=== PATIENT | male | born 1985 | race Caucasian/White ===

== ENCOUNTER 2017-09-06 09:15 | Inpatient (IN) | payer OTHER ==
[~2017-09-06 09:15] MED LIST: Acetaminophen TAB* 325 MG PO ONE; Buffered Lidocaine 0.9% SYRIN* 5 ML/SYR SYRINGE INTRADERM ONE; DiMENhydriNATE IV* 50 MG/ML VIAL IV PUSH PRN; Famotidine IV* 10 MG/ML 2 ML (20 mg) IV ONE; Gabapentin CAP(*) 300 MG PO ONE; Morphine INJ* 2 MG/ML 1 ML CARPUJECT IV PRN; Nalbuphine* 20 MG/ML 1 ML VIAL IV PRN; Naloxone* 0.4 MG/ML 1 ML VIAL IV PRN; Scopolamine 1.5 mg* PATCH TRANSDERM ONE; fentaNYL* 50 MCG/ML 2 ML VIAL (100 MCG VIAL) IV PRN
[2017-09-06] MEDS ORDERED: Famotidine IV* 10 MG/ML 2 ML (20 mg) ONE (09:28)
[2017-09-06] MEDS ORDERED: Gabapentin CAP(*) 300 MG ONE (09:29)
[2017-09-06] MEDS ORDERED: Scopolamine 1.5 mg* PATCH ONE (09:29)
[2017-09-06] MEDS ORDERED: Buffered Lidocaine 0.9% SYRIN* 5 ML/SYR SYRINGE ONE (09:29)
[2017-09-06] MEDS ORDERED: Acetaminophen TAB* 325 MG ONE (09:29)
[2017-09-06] MEDS ORDERED: fentaNYL* 50 MCG/ML 2 ML VIAL (100 MCG VIAL) ONE (10:39)
[2017-09-06] MEDS ORDERED: Midazolam* 1 MG/ML 10 ML VIAL (10 MG) ONE (10:39)
[2017-09-06] MEDS ORDERED: KETAMINE HCL* 50 MG/ML 10 ML VIAL ONE (10:39)
[2017-09-06] MEDS ORDERED: Morphine PF AMP (0.5MG/ML)* 5 MG/10 ML AMP ONE (11:12)
[2017-09-06] MEDS ORDERED: Naloxone* 2 MG in NS 0.9% 250 ML* 250 ML IV PRN (11:47)
[2017-09-06] MEDS ORDERED: Nalbuphine* 20 MG/ML 1 ML VIAL IV PRN ×2 (11:47)
[2017-09-06] MEDS ORDERED: diPHENhydraMINE IV* 50 MG/ML 1 ml VIAL (BENADRYL) IV PRN (11:47)
[2017-09-06] MEDS ORDERED: oxyCODONE TAB* 5 MG TAB PO PRN (11:47)
[2017-09-06] MEDS ORDERED: Naloxone* 0.4 MG/ML 1 ML VIAL IV PRN (11:47)
[2017-09-06] MEDS ORDERED: Ketorolac INJ* 30 MG/ML 1 ML VIAL IV PRN (11:47)
[2017-09-06] MEDS ORDERED: Bupivacaine 0.5% SDV PF* 10-30ML VIAL ONE (13:11)
[2017-09-06] MEDS ORDERED: Dexamethasone IV* 4 MG/ML 1 ML (4 MG) ONE (13:11)
[2017-09-06] MEDS ORDERED: Ondansetron INJ* 2 MG/ML VIAL ONE (13:11)
[2017-09-06] MEDS ORDERED: PROCHLORPERAZINE INJ 5 MG/ML 2 ML VIAL ONE (13:11)
[2017-09-06] MEDS ORDERED: Lidocaine 2% PF * 5 ML VIAL ONE (13:11)
[2017-09-06] MEDS ORDERED: Propofol* 500 MG/50 ML BTL ONE (13:11)
[2017-09-06] MEDS ORDERED: Lidocaine 2% PF* 10 ML AMP ONE (13:11)
[2017-09-06] MEDS ORDERED: Phenylephrine INJ* 10 MG/ML 1 ML VIAL (10 MG) ONE (13:11)
[2017-09-06] MEDS ORDERED: Ketorolac INJ* 30 MG/ML 1 ML VIAL ONE (13:11)
[2017-09-06] MEDS ORDERED: Magnesium Hydroxide LIQ* 30 ML UDC PO PRN (13:28)
[2017-09-06] MEDS ORDERED: Polyethylene Glycol 3350* 17 GM PACKET PO PRN (13:34)
[2017-09-06] MEDS ORDERED: Cyclobenzaprine TAB* 10 MG PO PRN (13:34)
[2017-09-06] MEDS ORDERED: Bisacodyl SUPP* 10 MG SUPP PR PRN (13:34)
[2017-09-06] MEDS ORDERED: ceFAZolin 1 GM in Dextrose (*) 1 GM/50 ML BAG IVPB SCH (14:00)
--- NOTE | 2017-09-06 14:16 | RAD ---
INDICATION: Status post total right hip replacement surgery. COMPARISON: Comparison is made with a prior x-ray study of the right hip from August 04, 2017. TECHNIQUE: An AP view of the pelvis was obtained. FINDINGS: The patient is status post total right hip replacement surgery. The bones and prostheses are in normal alignment. There are several surgical christiano present laterally and a small amount of air within the soft tissues consistent with the patient's recent surgery. IMPRESSION: STATUS POST TOTAL RIGHT HIP REPLACEMENT SURGERY.
[2017-09-06] MEDS: PROCHLORPERAZINE INJ 5 MG/ML 2 ML VIAL IV SCH ×2 (15:38→17:54)
[2017-09-06] MEDS: Ondansetron INJ* 2 MG/ML VIAL IV SCH ×2 (15:38→17:53)
[2017-09-06] MEDS: Acetaminophen TAB* 325 MG PO SCH ×3 (15:38→21:14)
[2017-09-06] MEDS: D5W 1/2 NS 1000 ML BAG* 1,000 ML IV SCH (15:57)
[2017-09-06] MEDS ORDERED: Nicotine GUM* 2 MG ONE (16:30)
[2017-09-06] MEDS ORDERED: Nicotine PATCH 21 MG/24 HR* PATCH ONE (16:30)
[2017-09-06] MEDS: Nicotine PATCH 21 MG/24 HR* PATCH TRANSDERM SCH (16:48)
[2017-09-06] MEDS: Nicotine GUM* 2 MG PO PRN ×2 (16:49→21:30)
[2017-09-06] MEDS ORDERED: Warfarin TAB(*) 10 MG PO ONE (17:00)
[2017-09-06] MEDS: ceFAZolin 1 GM in Dextrose (*) 1 GM/50 ML BAG IVPB SCH (19:24)
[2017-09-06] MEDS ORDERED: Nicotine Patch Removal NOTE PATCH OFF SCH (21:00)
[2017-09-06] MEDS: Docusate CAP* 100 MG PO SCH (21:13)
[2017-09-06] MEDS: Magnesium Hydroxide LIQ* 30 ML UDC PO SCH (21:14)
[2017-09-07] MEDS: Acetaminophen TAB* 325 MG PO SCH (00:06)
[2017-09-07] MEDS: Ondansetron INJ* 2 MG/ML VIAL IV SCH ×4 (00:08→18:38)
[2017-09-07] MEDS: PROCHLORPERAZINE INJ 5 MG/ML 2 ML VIAL IV SCH ×4 (00:08→18:38)
[2017-09-07] MEDS: D5W 1/2 NS 1000 ML BAG* 1,000 ML IV SCH (00:12)
[2017-09-07] MEDS ORDERED: Ondansetron TAB* 4 MG PO PRN (03:15)
[2017-09-07] MEDS ORDERED: diPHENhydraMINE IV* 50 MG/ML 1 ml VIAL (BENADRYL) IV PRN (03:15)
[2017-09-07] MEDS ORDERED: oxyCODONE TAB* 5 MG TAB PO PRN (03:15)
[2017-09-07] MEDS ORDERED: Acetaminophen TAB* 325 MG PO PRN (03:15)
[2017-09-07] MEDS ORDERED: Morphine INJ* 4 MG/ML 1 ML CARPUJECT IV PRN (03:15)
[2017-09-07] MEDS ORDERED: Ondansetron INJ* 2 MG/ML VIAL IV PRN (03:15)
--- NOTE | 2017-09-07 03:21 | OP ---
DATE OF OPERATION: 09/06/17 - ROOM #347 DATE OF : 81 SURGEON: Gopi Butterfield MD SOLAR ENGINEER: Faraz Encarnacion RPA ANESTHESIA: Spinal and sedation. PRE-OP DIAGNOSIS: Osteoarthritis, right hip, questionable avascular necrosis. POST-OP DIAGNOSIS: Osteoarthritis, right hip, questionable avascular necrosis. OPERATIVE PROCEDURE: Right total hip arthroplasty. INDICATIONS: Mr. Smith is a 32-year-old male, who has over a 10-year history of troubles with his right hip. He presented to the office earlier last month and x-rays showed very specific end-stage arthritic changes. He was crpr-ie-ncer with spurs and starting to have some collapse of the femoral head. I discussed with him that a total hip arthroplasty should work well to decrease his pain and improve his function. Risks of surgery such as infection , scar formation, stiffness, DVT, pulmonary embolism, hardware failure, as well as eventual hardware failure considering his age, leg length discrepancy, and instability were some of the risks discussed. He had been declared medically optimized and wished to proceed. ESTIMATED BLOOD LOSS: 100 cc. COMPLICATIONS: None. HARDWARE: Jorge Luis #15 M/L taper, 52-mm Continuum cup, vitamin E elevated liner 36- mm ceramic, -3.5 mm head. DESCRIPTION OF PROCEDURE: The patient was brought to the OR and spinal anesthesia was introduced. Dixon catheter was placed. He was then rolled into the left lateral decubitus position and an axillary roll was placed. Right hip area was prepped and then draped. Incision was made centered over the greater trochanter extending proximally and distally for about 7 cm. Incision was carried down through skin and subcutaneous tissues. Small bleeders encountered were ligated using electrocautery. Fascia was exposed and sharply incised. Trochanteric bursa was then peeled away from the back side of the greater trochanter giving nice exposure to the short external rotators. Hohmann was placed under the gluteus medius/gluteus minimus and I could palpate piriformis. Electrocautery was then used to release piriformis and the short external rotators. Capsule was also entered this way and a gush of blood-tinged fluid was obtained. T-capsulotomy was eventually performed and head was easily dislocated. Cutting guide was placed and the femoral neck was marked. Femoral head was then resected. Anterior C-retractor was placed over the anterior rim of the acetabulum and an inferior Hohmann retractor was placed and nice exposure of the acetabulum was obtained. Labrum was sharply excised giving nice exposure to the entirety of the acetabulum. It could be seen where he had chronic changes within the acetabulum as well. He was first deepened a little bit with a 44 reamer as I needed to medialize him because he needed a larger stem but the large stems do not come in reduced neck lengths. He was medialized first with a 44 until I was down to the medial wall of the acetabulum then he was progressively expanded. I templated him to a 56, but when I hit 51, I had a nice [id number] fit and had bleeding bone and thought that I did not need to resect additional bone. A 50 trial was placed and this did not fit perfectly well, so a 52 reamer was run just to open the edges a little bit and I thought that would fit nicely. A 52 cup was called for and then impacted into place. Even with my holding him, so that he would have good version, I lost my version as the cup settled in and the cup was shifted a bit. Cup was then rim impacted to try and shift the cup a little bit and perhaps I had gotten some better version on the cup. I still had a rim of bone on the backside and I thought I would be able to cover this nicely using an elevated liner. He was flush anteriorly. Two screws were placed and a nice bite was obtained. Trial liner was placed and attention was turned to the femur. Box osteotome was used to open the femoral canal and the canal finder was easily passed. Beginning with a 4 broach, he was progressively broached until the 13 countersunk a little bit, 15 was then used and I was able to get a nice snug fit with the 15. Calcar planer was run with a -3.5 head, he was trialed and had very good stability. His leg length also appeared to be right on. He could be hyperflexed without any wobble within the hip and with the hip flexed just at 90 degrees and a neutral at 60 degrees, he would start to lever out and then would be out at about 80. In full adduction, he would start to lever out at about 45 degrees and would be out at about 60. In extension, he seemed nice and stable and the trochanter did not hit the edge of the acetabulum. Sweeping position, up and down and back and forth was good. Trial instrumentation was removed and the polyethylene was then impacted into place. A 15-stem was also impacted into place and he was trialed again with a -3.5 head. He had a same very good stability and motion. A -3.5, 36-mm ceramic head was then impacted into place and the hip was relocated. The wound was copiously pulse lavaged. Piriformis along with short external rotators and capsule were repaired to the back side of the greater trochanter. Fascia was repaired was using interrupted #1 Vicryl sutures. Wound was again copiously pulse lavaged. Subcutaneous tissue was reapproximated 2-0 Vicryl, skin was closed using christiano. Sterile dressing was applied. The patient was then rolled on to the hospital bed and was stable on transfer to the recovery room. [id number]/[facility] #: [id number] TATIANA
[2017-09-07] MEDS: ceFAZolin 1 GM in Dextrose (*) 1 GM/50 ML BAG IVPB SCH ×2 (04:25→11:31)
[2017-09-07] MEDS: oxyCODONE/Acetamin 5/325 MG* TAB PO PRN ×3 (05:12→13:28)
[2017-09-07 05:50] LABS: Hematocrit 32 % (42-52); Hemoglobin 10.3 g/dl (14.0-18.0); Mean Platelet Volume 8 um3 (7.4-10.4); Platelet Count 240 10^3/ul (150-450)
[2017-09-07 05:56] LABS: INR 1.17 (0.77-1.02)
[2017-09-07 06:02] LABS: EGFR Non-African American 135.8 (>60)
[2017-09-07] MEDS: Nicotine GUM* 2 MG PO PRN ×3 (07:35→16:06)
[2017-09-07] MEDS ORDERED: Vitamin THERAPEUTIC TAB PO SCH (09:00)
[2017-09-07] MEDS ORDERED: buPROPion TAB* 75 MG PO SCH (09:00)
[2017-09-07] MEDS ORDERED: Omeprazole CAP* 20 MG PO SCH (09:00)
[2017-09-07] MEDS: Magnesium Hydroxide LIQ* 30 ML UDC PO SCH (09:09)
[2017-09-07] MEDS: Docusate CAP* 100 MG PO SCH (09:09)
[2017-09-07] MEDS: Nicotine PATCH 21 MG/24 HR* PATCH TRANSDERM SCH (09:10)
--- NOTE | 2017-09-07 11:15 | PN ---
Progress Note - Progress Note Date of Service: 09/07/17 Note: Anesthesia duramorph followup, Alert, VSS, -HUIZAR, -N/V. Neuro ok, VSS. Decent pain control. s/p THR, continue oral meds.
--- NOTE | 2017-09-07 12:17 | PN ---
Progress Note - Progress Note Date of Service: 09/07/17 SOAP: Subjective: []Patient seen OOB in chair, POD 1 sp right total hip arthroplasty. Pain is well controlled. Denies fever, chills, CP, SOB, right leg numbness. Objective: [] Vital Signs Temp 98.9 F 09/07/17 07:16 Pulse 74 09/07/17 07:16 Resp 18 09/07/17 09:09 BP 122/52 09/07/17 07:16 Pulse Ox 97 09/07/17 07:41 Intake & Output 09/06/17 09/07/17 09/07/17 18:59 06:59 18:59 Intake Total 2250 1296 1573 Output Total 500 1775 Balance 1750 -479 1573 Weight 186 lb 6.4 oz Intake: IV Fluids 2250 1096 983 ABX - CEFAZOLIN 55 D5W 1/2 NS 1041 983 LR 2200 NS 50ML, Cefazolin 2G 50 Oral 200 590 Output: Dixon 500 1775 Laboratory Last Values Hgb 10.3 g/dl (14.0-18.0) L 09/07/17 05:28 Hct 32 % (42-52) L 09/07/17 05:28 Plt Count 240 10^3/ul (150-450) 09/07/17 05:28 MPV 8 um3 (7.4-10.4) 09/07/17 05:28 INR (Anticoag Therapy) 1.17 (0.77-1.02) H 09/07/17 05:28 Sodium 133 mmol/L (133-145) 09/07/17 05:28 Potassium 4.0 mmol/L (3.5-5.0) 09/07/17 05:28 Chloride 103 mmol/L (101-111) 09/07/17 05:28 Carbon Dioxide 26 mmol/L (22-32) 09/07/17 05:28 Anion Gap 4 mmol/L (2-11) 09/07/17 05:28 BUN 14 mg/dL (6-24) 09/07/17 05:28 Creatinine 0.67 mg/dL (0.67-1.17) 09/07/17 05:28 Est GFR ( Amer) 174.6 (>60) 09/07/17 05:28 Est GFR (Non-Af Amer) 135.8 (>60) 09/07/17 05:28 BUN/Creatinine Ratio 20.9 (8-20) H 09/07/17 05:28 Glucose 185 mg/dL (70-100) H 09/07/17 05:28 Calcium 8.6 mg/dL (8.6-10.3) 09/07/17 05:28 General: Well appearing, NAD RLE: Dressing CDI, no surrounding erythema. DF/PF intact. DP2+ BL LE: calves supple and nontender without erythema, edema or palpable cords Assessment: []POD 1 sp right total hip Plan: []WBAT PT/OT Hip precautions heparin, coumadin 6 mg today
[2017-09-07] MEDS ORDERED: Heparin VIAL(*) 5000 UNITS/ML VIAL (FIVE THOUSAND) SUBCUT SCH (14:00)
[2017-09-07 15:20] VITALS: BP 110/66
[2017-09-07] MEDS ORDERED: Warfarin TAB(*) 6 MG PO ONE (17:00)
--- NOTE | 2017-09-08 13:16 | DS ---
AMENDED REPORT NOW INCLUDES COSIGNER DESIGNATION - ESIGNED BEFORE ADJUSTMENT DISCHARGE SUMMARY: DATE OF ADMISSION: 09/06/17 DATE OF DISCHARGE: 09/07/17 ATTENDING SURGEON: Gopi Butterfield MD * (DICTATED BY HOLLEY LEACH) [employer] STUDIES PROGRAM CHAIR: HOLLEY Elmore PREOPERATIVE DIAGNOSES: Osteoarthritis of the right hip with questionable avascular necrosis. OPERATIVE PROCEDURE: Right total hip arthroplasty. HISTORY: Mr. Smith is a 32-year-old male who has had 10 year history of troubles with his right hip. He presented to the office earlier in the month with x-ray that were very specific to end-stage arthritic changes. He had bone- on-bone arthritis with spurs and collapse and starting collapse of the femoral head. The patient agreed to a right total hip arthroplasty. HOSPITAL COURSE: Mr. Smith was admitted to [facility] on . He underwent a right total hip arthroplasty without complication. He was brought to the PACU for a short recovery and then to the short-stay surgical unit in stable condition. On postop day 1, laboratory values include hemoglobin 10.3, hematocrit 32, INR 1.17 after receiving 10 mg of Coumadin the night before. PHYSICAL EXAMINATION: The patient was well appearing in no acute distress. Dressing was clean, dry, intact. No surrounding erythema. Dorsiflexion, plantarflexion intact; 2+ dorsalis pedis pulse. Calves were supple and nontender without erythema, edema or palpable cords. The patient's dressing was changed before leaving. Incision was clean, dry and intact without any surrounding erythema or discharge. Vital Signs: Temperature 98.3, pulse rate 70, respiratory rate 17, oxygen saturation 100, blood pressure 110/66. DISCHARGE MEDICATIONS: 1. Wellbutrin 75 mg p.o. q.a.m. 2. Omeprazole 20 mg p.o. q.a.m. 3. Hydrocodone/acetaminophen 7.5/325 one tab p.o. t.i.d. 4. Acetaminophen 650 mg p.o. q. 4 hours p.r.n., max daily dose of 4000 mg daily from all sources. 5. Oxycodone/acetaminophen 5/325 one tab p.o. q. 4 hours p.r.n., max of 3 tabs per day. 6. Warfarin 2 mg tabs, 1 to 3 tabs to be taken per INR draws to determine dosing. 7. Docusate 100 mg p.o. b.i.d. p.r.n. DISCHARGE PLAN: Weightbearing as tolerated, continue hip precautions. Do not cross legs or bend greater than 90 degrees. Do not squat. Okay to shower after 09/09/17, no bathing, swimming, or submerging wound. Go to the emergency room with shortness of breath or chest pain. Call orthopedic office for increased drainage, redness, increased pain, fever, or if you have no bowel motion within 48 hours. You may resume a normal diet. Continue physical therapy and occupational therapy exercises as shown, visiting home nurse to remove the christiano in 10 to 12 days and do wound checks. Visiting home nurse will draw your INRs on Mondays and to determine Coumadin dosing. Coumadin dosing on 09/07 is 6 mg, on 09/08 please take 4 mg. Recheck INR on . Pain control: Continue regular home hydrocodone/acetaminophen of 7.5/325 mg 3 times per day. You may also alternate Percocet 5/325 mg once every 8 hours as needed for adequate pain control postoperatively. The patient states that he does not see Pain Management at this time. He gets his chronic pain medication from his primary care provider with whom he does not have a restricting pain management contract, but he will be seeing Pain Management on of this week. The patient is aware that he needs to make both providers aware of his surgery and that he has to received pain medication from the surgery team. Please note that Percocet and Cerrillos contain Tylenol and the max daily dose of Tylenol is 4000 mg from all sources. Follow up with Dr. Butterfield within 4 weeks, call for an appointment. HOLLEY LEACH [id number]/[facility] #: [id number] TATIANA
[2017-09-09] MEDS ORDERED: Scopolamine PATCH Remove* 1 NOTE MISC PATCH OFF ONE (06:00)
== END 2017-09-07 18:30 | disposition home health service (06) | DRG 301 ==
LOC: AA 09:15 → SSU 15:20
PROVIDERS: ADMIT Orthopaedic Surgery; ATTEND Orthopaedic Surgery
PROC: 0SR904A Replacement of Right Hip Joint with Ceramic on Polyethylene Synthetic Substitute, Uncemented, Open Approach (ICD-10-PCS; principal; 2017-09-06 11:00)
DX: M16.11 Unilateral primary osteoarthritis, right hip (principal); M87.851 Other osteonecrosis, right femur; J45.909 Unspecified asthma, uncomplicated; M42.00 Juvenile osteochondrosis of spine, site unspecified; Z56.0 Unemployment, unspecified; Z83.3 Family history of diabetes mellitus; Z87.891 Personal history of nicotine dependence; Z72.89 Other problems related to lifestyle
CPT/HCPCS: 36415; 72170; 80048; 85014; 85018; 85049; 85610; 94760; A9270-GY; J0690; J0780; J1100; J1644; J1885; J2001; J2250; J2405; J2704; J3010

== ENCOUNTER 2024-07-05 14:40 | Observation (INO) ==
[2024-07-05 15:16] LABS: ABS Eosinophils 0.1 10^3/uL (0.0-0.5); ABS Lymphocytes 3.6 10^3/uL (1.0-4.8); ABS Monocytes 0.2 10^3/uL (0.0-1.1); ABS Neutrophils 5.6 10^3/uL (1.5-7.6); ABS Nucleated RBC 0.01 10^3/ul; Eosinophil % 1.5 %; Hematocrit 51.4 % (38-53); Hemoglobin 17.5 g/dL (13.2-16.3); Lymphocyte % 37.4 %; Mean Corpuscular Hemoglobin 33.8 pg (27-33); Mean Corpuscular Hgb Conc 34.1 g/dL (31-36); Mean Corpuscular Volume 99.2 fL (80-97); Mean Platelet Volume 8.8 fL (7.5-11.2); Nucleated Red Blood Cells % 0.1 %/100WBC (0.0-0.8); Platelet Count 247 10^3/uL (150-450); Red Blood Count 5.18 10^6/uL (4.06-5.63); Red Cell Distribution Width 13.2 % (12-17); White Blood Count 9.6 10^3/uL (3.6-10.2)
[2024-07-05 15:39] LABS: Albumin 4.5 g/dL (3.5-5.7); Albumin/Globulin Ratio 1.5 (1-3); Calcium 9.8 mg/dL (8.6-10.3); Creatinine, Serum 1.16 mg/dL (0.67-1.17); Globulin 3.1 g/dL (2-4); Potassium 3.9 mmol/L (3.5-5.0); Total Bilirubin 0.8 mg/dL (0.2-1.0); Total Protein 7.6 g/dL (6.4-8.9); eGFR CKD-EPI 81.2 (>60)
[2024-07-05 17:18] LABS: High Sensitivity Troponin 1 Hr 49 pg/mL (<20)
[2024-07-05 18:42] LABS: High Sensitivity Troponin 3 Hr 73 pg/mL (<20)
[2024-07-05] MEDS: oxyCODONE/Acetamin 5/325 mg TAB PO ONE (20:34)
[2024-07-05] MEDS ORDERED: Albuterol HFA INHALER 8 gm MDI INH PRN (22:05)
[2024-07-05] MEDS ORDERED: Sulfur Hexaflouride MICROSPHR 25 MG VIAL IV PRN (22:27)
[2024-07-06] MEDS: hydrALAZINE 20 mg/ml 1 ML Vial IV IV SLOW PU ONE (01:54)
[2024-07-06] MEDS: oxyCODONE/Acetamin 5/325 mg TAB PO PRN (05:04)
[2024-07-06 06:23] LABS: Albumin 4.1 g/dL (3.5-5.7); Albumin/Globulin Ratio 1.4 (1-3); Calcium 9.4 mg/dL (8.6-10.3); Creatinine, Serum 0.73 mg/dL (0.67-1.17); Potassium 3.4 mmol/L (3.5-5.0); Total Bilirubin 0.8 mg/dL (0.2-1.0); Total Protein 7.1 g/dL (6.4-8.9); eGFR CKD-EPI 117.2 (>60)
[2024-07-06 07:20] LABS: High Sensitivity Troponin 1 Hr 13 pg/mL (<20)
[2024-07-06 07:51] LABS: Magnesium 1.7 mg/dL (1.9-2.7)
[2024-07-06] MEDS: KCL 20 MEQ/100 ML IVPREMIX 20 MEQ/100 ML BAG IV SCH (09:18)
[2024-07-06 09:25] LABS: ABS Basophils 0.1 10^3/uL (0.0-0.1); ABS Eosinophils 0.4 10^3/uL (0.0-0.5); ABS Lymphocytes 2.7 10^3/uL (1.0-4.8); ABS Monocytes 0.6 10^3/uL (0.0-1.1); ABS Neutrophils 3.9 10^3/uL (1.5-7.6); ABS Nucleated RBC 0.01 10^3/ul; Eosinophil % 5.5 %; Hematocrit 49.1 % (38-53); Lymphocyte % 35.1 %; Mean Corpuscular Hemoglobin 34.2 pg (27-33); Mean Corpuscular Hgb Conc 34.7 g/dL (31-36); Mean Corpuscular Volume 98.5 fL (80-97); Mean Platelet Volume 8.7 fL (7.5-11.2); Nucleated Red Blood Cells % 0.1 %/100WBC (0.0-0.8); Platelet Count 217 10^3/uL (150-450); Red Blood Count 4.98 10^6/uL (4.06-5.63); Red Cell Distribution Width 12.9 % (12-17); White Blood Count 7.7 10^3/uL (3.6-10.2)
[2024-07-06] MEDS ORDERED: Lorazepam PYXIS KEY PRN (09:32)
[2024-07-06] MEDS: Nicotine PATCH 14 MG/24 HR PATCH TRANSDERM SCH (09:55)
[2024-07-06] MEDS ORDERED: LORazepam 2 mg VIAL 1 ml IV PUSH SCH (10:00)
[2024-07-06] MEDS: Lactated Ringers 1000 ml BAG 1,000 ML IV ONE (10:03)
[2024-07-06] MEDS: Magnesium Sulfate 2 gm BAG 2 GM/50 ML BAG IVPB ONE (12:02)
[2024-07-06] MEDS: Thiamine 100 MG/ML 2 ml VIAL (200 mg) IM ONE (12:02)
[2024-07-06 14:56] LABS: TSH Ultra Thyroid Stim Horm 1.32 mcIU/mL (0.34-5.60)
[2024-07-06 15:07] LABS: Folate 4.75 ng/mL (5.90-24.80)
[2024-07-06 18:05] VITALS: BP 165/112
[2024-07-06] MEDS: Cyanocobalamin INJ 1,000 MCG/ML VIAL 1 ML VIAL IM ONE (18:45)
[2024-07-06] MEDS ORDERED: Enoxaparin 40 MG/0.4 ML SYR SUBCUT SCH (21:00)
[2024-07-07] MEDS ORDERED: Multivitamins/Minerals TAB PO SCH (09:00)
== END 2024-07-06 19:04 | disposition home or self-care (01) ==
LOC: EDHOLD 14:40 → ED 14:40 → SUATTDRO 20:37 → MEDTELE 07-06 07:56
PROVIDERS: ADMIT Hospitalist; ATTEND Internal Medicine